=== PATIENT | female | born 1980 | race Caucasian/White ===

== ENCOUNTER 2018-06-19 12:24 | Outpatient (CLI) | payer MEDICAID ==
[2018-06-19] MEDS ORDERED: TERBUTALINE 1 ML (13:53)
[2018-06-19] MEDS: TERBUTALINE 1 MG/ML INJ SC ×2 (14:07→16:49)
[2018-06-19] MEDS: LACTATED RINGER'S 1,000 ML IV (14:08)
[2018-06-19 14:48] LABS: ADD UMIC NO; UR ASCORBIC ACID NEGATIVE (NEGATIVE); UR BILIRUBIN (Dip) NEGATIVE (NEGATIVE); UR BLOOD (Dip) NEGATIVE (NEGATIVE); UR CLARITY CLEAR (CLEAR); UR COLOR YELLOW (YELLOW); UR GLUCOSE (Dip) NEGATIVE (NEGATIVE); UR KETONES (Dip) NEGATIVE (NEGATIVE); UR LEUKOCYTE ESTERASE (Dip) NEGATIVE Leu/ul (NEGATIVE); UR NITRITE (Dip) NEGATIVE (NEGATIVE); UR SPECIFIC GRAVITY (Dip) 1.014 (1.003-1.030); UR TOTAL PROTEIN (Dip) NEGATIVE (NEGATIVE); UR UROBILINOGEN (Dip) NEGATIVE (NEGATIVE)
== END 2018-06-19 18:00 | disposition home or self-care (01) ==
LOC: OBT 12:24 → L-D 12:28 → OBT 18:00
DX: O62.9 Abnormality of forces of labor, unspecified (principal); O09.513 Supervision of elderly primigravida, third trimester; Z3A.35 35 weeks gestation of pregnancy
CPT/HCPCS: 36415; 76815; 76818; 81003; 96360; 96361

== ENCOUNTER 2018-07-01 20:00 | Inpatient (IN) | payer MEDICAID ==
[2018-07-01 22:35] LABS: ADD UMIC YES; UR ASCORBIC ACID NEGATIVE (NEGATIVE); UR BILIRUBIN (Dip) NEGATIVE (NEGATIVE); UR BLOOD (Dip) NEGATIVE (NEGATIVE); UR CLARITY SLIGHTLY CLOUDY (CLEAR); UR COLOR YELLOW (YELLOW); UR GLUCOSE (Dip) NEGATIVE (NEGATIVE); UR KETONES (Dip) NEGATIVE (NEGATIVE); UR LEUKOCYTE ESTERASE (Dip) NEGATIVE Leu/ul (NEGATIVE); UR MUCUS FEW /HPF (NONE SEEN); UR NITRITE (Dip) NEGATIVE (NEGATIVE); UR RBC 0 /HPF (0-5); UR SPECIFIC GRAVITY (Dip) 1.024 (1.003-1.030); UR SQUAMOUS EPITHELIAL CELL FEW /HPF (FEW); UR TOTAL PROTEIN (Dip) 1+ mg/dl (NEGATIVE); UR UROBILINOGEN (Dip) 2+ mg/dL (NEGATIVE); UR WBC 1 /HPF (0-5)
[2018-07-01 23:01] LABS: RUPTURE FETAL MEMBRANES POSITIVE (NEGATIVE)
[2018-07-01] MEDS ORDERED: METHYLERGONOVINE 0.2 MG INJ IM (23:30)
[2018-07-01] MEDS ORDERED: MISOPROSTOL 200 MCG TAB PR (23:30)
[2018-07-01] MEDS ORDERED: OXYTOCIN 30 UNITS/LR 500 ML IV (23:30)
[2018-07-01] MEDS ORDERED: CARBOPROST 250 MCG INJ IM (23:30)
[2018-07-01] MEDS: LACTATED RINGER'S 1,000 ML IV (23:44)
[2018-07-02 00:14] LABS: ADD MAN DIFF? NO; BASOPHILS % 0.3 % (0.0-2.0); EOSINOPHILS # 0.1 10^3/ul (0.0-0.5); EOSINOPHILS % 0.9 % (0.0-7.0); HEMATOCRIT 36.2 % (37.0-47.0); HEMOGLOBIN 11.6 g/dl (12.0-16.0); LYMPHOCYTES # 3.3 10^3/ul (0.8-2.9); LYMPHOCYTES % 27.3 % (15.0-51.0); MEAN CORPUSCULAR HEMOGLOBIN 24.2 pg (29.0-33.0); MEAN CORPUSCULAR VOLUME 75.6 fl (82.0-101.0); MEAN PLATELET VOLUME 9.4 fl (7.4-10.4); MONOCYTE # 0.7 10^3/ul (0.3-0.9); MONOCYTES % 5.5 % (0.0-11.0); NEUTROPHILS % 65.1 % (39.0-77.0); PLATELET COUNT 338 10^3/UL (140-415); RED BLOOD COUNT 4.79 10^6/ul (4.20-5.40); RED CELL DISTRIBUTION WIDTH 14.2 % (11.5-14.5)
[2018-07-02 00:14] LABS: WHITE BLOOD COUNT 12.2 10^3/ul (4.8-10.8)
[2018-07-02 00:35] LABS: INR 0.91; PARTIAL THROMBOPLASTIN TIME 28.6 Sec (23.0-35.0); PROTIME 12.4 Sec (11.9-14.9)
[2018-07-02] MEDS: LACTATED RINGER'S 1,000 ML IV ×3 (01:43→23:17)
[2018-07-02] MEDS ORDERED: ONDANSETRON 4 MG INJ (01:52)
[2018-07-02] MEDS ORDERED: morphine SULFATE/PF (10 MG/10 ML) INJ (01:52)
[2018-07-02] MEDS ORDERED: OXYTOCIN 10 UNIT INJ (01:52)
[2018-07-02] MEDS: CEFAZOLIN 2 GM/50 ML (PMX) 50 ML IVPB (02:50)
[2018-07-02] MEDS ORDERED: DIPHENHYDRAMINE 50 MG INJ IV (03:30)
[2018-07-02] MEDS ORDERED: ONDANSETRON 4 MG INJ IV (03:30)
[2018-07-02] MEDS ORDERED: NALOXONE (0.4 MG/ML) INJ IV (03:30)
[2018-07-02] MEDS ORDERED: morphine 4 MG/ML VIAL IV (03:30)
[2018-07-02] MEDS: DEXTROSE 5%-LR 1,000 ML IV ×3 (03:42→19:42)
[2018-07-02] MEDS ORDERED: METHYLERGONOVINE 0.2 MG INJ IM (04:00)
[2018-07-02] MEDS ORDERED: LANOLIN HPA 1 PKT TOP (04:00)
[2018-07-02] MEDS ORDERED: MISOPROSTOL 200 MCG TAB PR (04:00)
[2018-07-02] MEDS ORDERED: METHYLERGONOVINE 0.2 MG TAB PO (04:00)
[2018-07-02] MEDS ORDERED: CARBOPROST 250 MCG INJ IM (04:00)
[2018-07-02] MEDS ORDERED: OXYTOCIN 30 UNITS/LR 500 ML IV (04:00)
[2018-07-02] MEDS: OXYTOCIN 30 UNITS/LR 500 ML IV ×2 (04:18→08:21)
[2018-07-02] MEDS ORDERED: OXYTOCIN 30 UNITS/LR 500 ML BAG IV (07:00)
[2018-07-02] MEDS: SENNA/DOCUSATE NA (8.6MG/50MG) TAB PO ×2 (08:22→20:54)
[2018-07-02 15:23] LABS: RAPID PLASMA REAGIN NONREACTIVE (NR)
[2018-07-02] MEDS: KETOROLAC 30 MG INJ IV (21:07)
[2018-07-03] MEDS: IBUPROFEN 800 MG TAB PO ×3 (06:15→22:00)
[2018-07-03 08:30] LABS: ADD MAN DIFF? NO
[2018-07-03 08:43] LABS: BASOPHILS % 0.3 % (0.0-2.0); EOSINOPHILS # 0.1 10^3/ul (0.0-0.5); EOSINOPHILS % 0.9 % (0.0-7.0); HEMATOCRIT 33.1 % (37.0-47.0); HEMOGLOBIN 10.4 g/dl (12.0-16.0); LYMPHOCYTES # 2.5 10^3/ul (0.8-2.9); LYMPHOCYTES % 21.3 % (15.0-51.0); MEAN CORPUSCULAR HEMOGLOBIN 24.2 pg (29.0-33.0); MEAN CORPUSCULAR HGB CONC 31.4 g/dl (32.0-37.0); MEAN PLATELET VOLUME 9.3 fl (7.4-10.4); MONOCYTE # 0.7 10^3/ul (0.3-0.9); MONOCYTES % 5.6 % (0.0-11.0); NEUTROPHIL # 8.3 10^3/ul (1.6-7.5); NEUTROPHILS % 71.4 % (39.0-77.0); PLATELET COUNT 291 10^3/UL (140-415); RED CELL DISTRIBUTION WIDTH 14.4 % (11.5-14.5)
[2018-07-03 08:43] LABS: WHITE BLOOD COUNT 11.6 10^3/ul (4.8-10.8)
[2018-07-03] MEDS: SENNA/DOCUSATE NA (8.6MG/50MG) TAB PO ×2 (09:30→20:30)
[2018-07-03] MEDS ORDERED: DIPHTH/TET/ACEL PERTUSS (ADULT) 0.5 ML VIAL IM* (11:00)
[2018-07-03] MEDS: HYDROCODONE/APAP (5/325) TAB PO ×3 (11:55→22:00)
[2018-07-04] MEDS: IBUPROFEN 800 MG TAB PO ×3 (05:25→21:56)
[2018-07-04] MEDS: HYDROCODONE/APAP (5/325) TAB PO ×3 (05:25→21:57)
[2018-07-04] MEDS: SENNA/DOCUSATE NA (8.6MG/50MG) TAB PO ×2 (09:50→21:56)
[2018-07-04] MEDS: MAGNESIUM HYDROXIDE 30ML CUP PO (09:50)
[2018-07-05] MEDS: IBUPROFEN 800 MG TAB PO ×2 (05:56→13:17)
[2018-07-05] MEDS: HYDROCODONE/APAP (5/325) TAB PO ×2 (05:56→13:17)
[2018-07-05] MEDS: DIPHTH/TET/ACEL PERTUSS (ADULT) 0.5 ML VIAL IM* (09:00)
[2018-07-05] MEDS: MEASLES,MUMPS,RUBELLA VACCINE INJ SC* (09:00)
[2018-07-05] MEDS: SENNA/DOCUSATE NA (8.6MG/50MG) TAB PO (10:16)
== END 2018-07-05 16:40 | disposition home or self-care (01) | DRG 788 ==
LOC: OBT 20:00 → L-D 07-02 01:49 → OBT 23:15 → PP1 07-02 05:57 → L-D 23:15
PROC: 10D00Z1 Extraction of Products of Conception, Low, Open Approach (ICD-10-PCS; principal; 2018-07-02 02:00)
DX: O34.211 Maternal care for low transverse scar from previous cesarean delivery (principal); Z3A.37 37 weeks gestation of pregnancy; Z37.0 Single live birth
CPT/HCPCS: 76818; 81001; 84112; 85025; 85610; 85730; 86592; 86850; 86900; 86901; 99464